=== PATIENT | male | born 1955 | race Caucasian/White ===

== ENCOUNTER → 2020-12-08 | Outpatient (CLI) | payer OTHER ==
[2016-02-18 08:49] VITALS: BP 112/78
[~2020-12-08] MED LIST: HYDR12.575 PO; LEXAPRO20 MG PO; METO50TA6 PO; SIMV40TA18 PO
--- NOTE | 2020-12-08 14:05 | KCIC ---
MR LUMBAR SPINE WO -[id number] History: Reason: DEGENERATIVE DISC DISEASE/LOW BACK PAIN / Spl. Instructions: / History: Chronic LBP , worsening right thigh pain. No surgical hx. Technique: Multiplanar, multi sequential MR imaging was performed of the lumbar spine. Comparison: None Findings: Grade 1 anterolisthesis L4 on L5. Normal vertebral body height. No fracture. Conus terminates at the normal location. No evidence of nerve root clumping. L1-L2: Small disc bulge. Mild facet arthropathy. No canal or neuroforaminal narrowing. L2-L3: Small disc bulge. Mild facet arthropathy. No canal or neuroforaminal narrowing. L3-L4: Broad-based disc bulge with annular fissure. Moderate facet arthropathy. Minimal canal narrow ing. Subarticular recess narrowing. Mild to moderate right and mild left neuroforaminal narrowing. L4-L5: Disc bulge. Advanced facet arthropathy. Mild canal narrowing. Some reticular recess narrowing . Abutment of descending L5 nerve roots, right greater than left. Mild to moderate bilateral neurofor aminal narrowing. L5-S1: Disc bulge. Advanced facet arthropathy. No canal narrowing.. Mild neuroforaminal narrowing. Impression: 1. Multilevel lumbar spondylosis most prominent L4-5. 2. Grade 1 anterolisthesis L4 on L5 due to advanced facet arthropathy. 3. Neuroforaminal narrowing most prominent L3-L4 and L4-L5. Electronically signed by: Gonzalo Moreland DO (12/08/2020 2:02 PM) [id number]
== END ==
LOC: KCIC MRI 10:03
PROVIDERS: ATTEND Physician Assistant
DX: M47.817 Spondylosis without myelopathy or radiculopathy, lumbosacral region (principal); M48.061 Spinal stenosis, lumbar region without neurogenic claudication; M43.16 Spondylolisthesis, lumbar region; M51.36 Other intervertebral disc degeneration, lumbar region
CPT/HCPCS: 72148

== ENCOUNTER → 2021-01-05 | Outpatient (CLI) | payer OTHER ==
[2016-02-18 08:49] VITALS: BP 112/78
[~2021-01-05] MED LIST changes: +ALLO300T PO; +BUSP30TA PO; +CELE200C PO; +FENO145T3 PO; +INDO75CA3 PO; +NAPR-514 PO; +PANT40TA77 PO; +TAMS0.4C97 PO; +ZOLP5TAB5 PO
--- NOTE | 2021-01-05 15:42 | PDOC1 ---
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 Patient reports now it is traveling in the right lower extremity and across the low back worse on the right side right at the posterior gluteus lateral thigh anterior thigh medial thigh posterior thigh into the anterior medial lower leg as well as both of the feet patient reports some pain in the mid back as well describes the pain as sharp and shooting intermittent intensity worse with activity standing walking changing positions better with sitting or laying down but does awaken him sleep at least twice a night patient reports is not effective bowel bladder control does affect his ability to walk he feels he is off balance and the right leg fatigues much more easily than the left. Patient describes pain as tingling and radiating aching and burning in the back with numbness and radiating in the leg on the right side patient rates his disability rating 0-10 10 being worst is an 8 with family home responsibilities recreation and social activity 7 with occupation 6 with sexual behavior and self-care 5 with life support activities. Patient did have an MRI scan lumbar spine dated December 08, 2020 showing broad-based disc bulge at L3-4 as well as L4-5 with moderate facet arthropathy at both levels minimal canal narrowing mild to moderate right and mild left neuroforaminal narrowing L3-4 and mild to moderate bilateral neuroforaminal narrowing at L4-5 with abutment of the descending L5 nerve roots and right greater than left. Patient reports has had chiropractic treatment also doing stretching strength exercises on his own which were helpful temporarily but the pain returned after about 4 to 5 days following treatment. Patient is taking naproxen also ibuprofen also Celebrex all of which have helped but only temporarily as well. PAST MEDICAL HISTORY: PMH: Arthritis, hypertension, non-Hodgkin's lymphoma 2008 status post surgery and chemotherapy, hearing loss PREVIOUS SURGERIES: Past Surgical Hx: Right knee surgery, abdominal tumor excision, left knee surgery, tonsillectomy, right foot surgery, umbilical hernia, ventral hernia, vasectomy, wisdom teeth extraction CURRENT MEDICATIONS: Current Meds: Active Scripts Medications Dose Route/Sig Max Daily Dose Days Date Category Allopurinol 300 Mg Tablet 1 Tab PO DAILY 01/05/21 Reported Celebrex (Celecoxib) 200 Mg Capsule 1 Cap PO DAILY 01/05/21 Reported Indomethacin 75 Mg Capsule.er 1 Cap PO DAILY 01/05/21 Reported Fenofibrate (Fenofibrate Nanocrystallized) 145 Mg Tablet 1 Tab PO DAILY 01/05/21 Reported Zolpidem Tartrate 5 Mg Tablet 5 Mg PO PRN QHS PRN 01/05/21 Reported Flomax (Tamsulosin Hcl) 0.4 Mg Cap.er.24h 1 Cap PO DAILY 01/05/21 Reported Pantoprazole Sodium (Pantoprazole Sodium) 40 Mg Tablet.dr 40 Mg PO DAILYAC 01/05/21 Reported Buspirone Hcl 30 Mg Tablet 1 Tab PO BID 01/05/21 Reported Naproxen 500 Mg Tablet 1 Tab PO BID 30 01/05/21 Reported Lexapro (Escitalopram Oxalate) 20 Mg Tablet 20 Mg PO DAILY 02/18/16 Reported Metoprolol Tartrate 50 Mg Tablet 50 Mg PO BID 02/18/16 Reported ALLERGIES; Allergies: Coded Allergies: latex (Verified Allergy, Intermediate, RASH, NOSE ITCHES, 02/18/16) FAMILY HISTORY: Family Hx: Cancers, also skin cancer SOCIAL HISTORY: Social Hx: Patient drinks about 3-5 beers a week does not smoke does not use any illegal illicit or recreational drugs is lives with his spouse lives locally in [facility] and is recently retired from duty. REVIEW OF SYSTEMS: ROS: Positive for those items mentioned in history of present illness, all systems are reviewed, otherwise negative ,and are complete full and well-documented on patient's chart. PHYSICAL EXAM: VS: Blood pressure is 134/75 pulse 69 respirations 18 temperature 98.7 F height is 6 foot weight 256 pounds PE: PHYSICAL EXAMINATION: GENERAL: The patient is awake, alert, oriented, appropriate, very pleasant in demeanor HEENT: Shows normocephalic, atraumatic. Extraocular movements are intact and symmetrical. Oral cavity: Mucous membranes moist and pink. Dentition is intact. NECK: Shows anterior throat supple without palpable lymphadenopathy noted. Swallow reflex symmetrical. CHEST: Shows normal on inspection. Breath sounds are clear bilaterally, no rales rhonchi or wheezes auscultated. HEART: Shows S1, S2 clear. No murmurs auscultated. ABDOMEN: Soft, nontender, nondistended, obese. No palpable organomegaly is noted. No rebound or guarding demonstrated. BACK: Shows spine grossly in the midline. Normal-appearing cervical lordotic curvature. There is slightly increased thoracic kyphosis, some minor flattening of the lumbar lordotic curvature. Lumbar paraspinous muscles show symmetrical o n inspection, on palpation shows some moderate tenderness diffusely throughout the upper, middle and lower distribution of the paraspinous muscles bilaterally and also into the lower thoracic paraspinous musculature, firm and tender, but without specific trigger points, without radiation of pain. The patient has good rotational motion of the lumbar spine, both laterally as well as extension and flexion without significant difficulty. No tenderness over the spinous processes, sacrum or sacroiliac regions. EXTREMITIES: Lower extremities show deep tendon reflexes 2+ in the patellar and tendo calcaneus tendons. Motor exam is 4 on a scale of 5 with right dorsiflexion, extension, quadriceps and hamstring flexion and 5/5 on the left. Peripheral pulses are 1+ posterior tibial. 1-2+ peripheral edema is noted in the lower extremities from the ankle to two thirds the distance to the knee on the anterior tibia, bilaterally. Lower extremities are warm and dry to touch, equal in color and appearance. Straight leg raise noted to be positive on the right about 40 degrees, left side is neck. Gaenslen's and Abel's maneuvers are negative bilaterally as well. The patient is able to stand, stand on his toes that significant difficulty loss of balance walks with a slight favoring gait appears to favor the right lower extremity mildly but no assistive devices used to ambulate. SKIN: Shows warm and dry, good turgor. No edema. No sores, rashes or bruising throughout. IMPRESSION: Impression: 65-year-old male with 3-year history increasing pain low back right lower extremity radicular fashion following L3-4 L4-5 dermatomal distribution MRI scan lumbar spine as noted Arthritis Hypertension History of non-Hodgkin's lymphoma Plan: Options were discussed with patient including conservative management physical therapies interventional techniques. Patient would like to pursue interventional techniques. We discussed a lumbar epidural steroid injection using description as well as anatomical model to describe the procedure. Patient will wait for preauthorization with his insurance provider once is obtained to have him return for translaminar approach L4-5 lumbar epidural steroid injection with fluoroscopic guidance at that time. In the meantime, p efren will continue with stretching strength exercises and oral analgesics as currently. NAHED LAWRENCE MD Jan 05, 2021 15:42
== END | disposition home or self-care (01) ==
LOC: PNCL 09:00
PROVIDERS: ATTEND Anesthesiology
DX: M54.5 Low back pain (principal); M79.604 Pain in right leg; M19.90 Unspecified osteoarthritis, unspecified site; I10 Essential (primary) hypertension; E78.00 Pure hypercholesterolemia, unspecified; G47.30 Sleep apnea, unspecified; F32.9 Major depressive disorder, single episode, unspecified; Z79.899 Other long term (current) drug therapy; Z98.890 Other specified postprocedural states; Z91.040 Latex allergy status; Z88.8 Allergy status to other drugs, medicaments and biological substances; Z85.72 Personal history of non-Hodgkin lymphomas
CPT/HCPCS: G0463

== ENCOUNTER → 2021-01-28 | Outpatient (CLI) | payer OTHER ==
[2016-02-18 08:49] VITALS: BP 112/78
[~2021-01-28] MED LIST changes: +IOHEXOL 180 MG/ML 10 ML VIAL. ONE; +methylPREDNISolone ACETATE 80 MG/ML VIAL. ONE
--- NOTE | 2021-01-28 10:44 | PDOC ---
Progress Note - Pain Clinic Date of Service: DOS: DATE: 01/28/21 TIME: 10:42 Diagnosis: Dx: Lumbar radiculopathy with lumbar degenerative disease and lumbar spondylosis History or Present Illness: HPI: 65-year-old male returns for follow-up status post initial evaluation patient returns with pain in the low back and radiating into the right lower extremity low back right leg posterior gluteus posterior lateral thigh lateral anterior thigh anteromedial thigh medial lower leg described as aching and sharp burning on and off in intensity worse with walking and standing is been waking her from sleep least once or twice a night patient reports the pain is an 8 on scale 10 is worse over the past week 5 on average to its least and is a 2 today. Patient reports better with sitting or laying down but he has been waking up from sleep patient reports no bowel or bladder incontinence or motor deficits with sig nificant debility extremity. Physical Exam: VS: Blood pressure is 111/71 pulse 87 respirations 18 temperature 99.6 F weight is 252 pounds PE: PHYSICAL EXAMINATION: GENERAL: The patient is awake, alert, oriented, appropriate, very pleasant in demeanor HEENT: Shows normocephalic, atraumatic. Extraocular movements are intact and symmetrical. Oral cavity: Mucous membranes moist and pink. Dentition is intact. NECK: Shows anterior throat supple without palpable lymphadenopathy noted. Swallow reflex symmetrical. CHEST: Shows normal on inspection. Breath sounds are clear bilaterally, no rales or rhonchi. HEART: Shows S1, S2 clear. No murmurs auscultated. ABDOMEN: Soft, nontender, nondistended, obese. No palpable organomegaly is noted. BACK: Shows spine grossly in the midline. Normal-appearing cervical lordotic curvature. There is slightly increased thoracic kyphosis, some minor flattening of the lumbar lordotic curvature. Lumbar paraspinous muscles show symmetrical on inspection, on palpation shows some moderate tenderness diffusely throughout the upper, middle and lower distribution of the paraspinous muscles without specific trigger points, without radiation of pain. The patient has good rotational motion of the lumbar spine, both laterally as well as extension and flexion without significant difficulty. EXTREMITIES: Lower extremities show deep tendon reflexes 2+ in the patellar and tendo calcaneus tendons. Motor exam is 4 on a scale of 5 with right dorsiflexion, extension, quadriceps and hamstring flexion and []/5 on the left. Peripheral pulses are 1+ posterior tibial. No peripheral edema is noted bilaterally. Lower extremities are warm and dry to touch, equal in color and appearance. SKIN: Shows warm and dry, good turgor. No edema. No sores, rashes or bruising throughout. Procedure: Procedure: Options were discussed with the patient. Patient's old chart was reviewed his current medication regimen updated current review of systems updated today as well. We will proceed with a lumbar epidural steroid injection today with fluoroscopic guidance. Risks were discussed including but not limited to: Bleeding, infection, possibility of epidural hematoma and subsequent neurological compromise, dural puncture, headaches, spinal cord and/or nerve damage, side effects of steroid medication, and poor results regarding pain control. Patient understands and wished to proceed. Patient return to clinic in approximate 2 weeks for follow-up, was counseled as to return appointment, activity level, and side effects to be aware of. Medication Injected: Med Injected: Procedure is lumbar epidural steroid injection under local anesthetic using neena rile prep and drape at the L4-5 level using C-arm fluoroscopic guidance in both AP and lateral views medications injected is 120 mg Depo-Medrol +10mL preservative-free normal saline and 2 mL contrast- condition at discharge is stable patient tolerated procedure well had no complications. Condition at Discharge: Condition at Discharge: Condition at discharge is stable, patient tolerated the procedure well and had no complications. NAHED LAWRENCE MD Jan 28, 2021 10:44
--- NOTE | 2021-01-28 10:45 | PDOC4 ---
Procedure Note: ICD 10 Code: ICD 10 Code: M54.16 M54.36 M 47.816 Procedure Note: Patient was consented for lumbar epidural steroid injection with fluoroscopic guidance. Risks were discussed including but not limited to: Bleeding, infection, possibility of epidural hematoma and subsequent neurological compromise, dural puncture, headaches, spinal cord and/or nerve damage, side effects of steroid medication, and poor results regarding pain control. Patient understands and wished to proceed. Procedure is lumbar epidural steroid injection under local anesthetic using st erile prep and drape at the L4-5 level using C-arm fluoroscopic guidance in both AP and lateral views medications injected is 120 mg Depo-Medrol +10mL preservative-free normal saline and 2 mL contrast- condition at discharge is stable patient tolerated procedure well had no complications. NAHED LAWRENCE MD Jan 28, 2021 10:45
== END | disposition home or self-care (01) ==
LOC: PNCL 09:20
PROVIDERS: ATTEND Anesthesiology
DX: M51.16 Intervertebral disc disorders with radiculopathy, lumbar region (principal); M47.26 Other spondylosis with radiculopathy, lumbar region; I10 Essential (primary) hypertension; E78.00 Pure hypercholesterolemia, unspecified; G47.30 Sleep apnea, unspecified; M19.90 Unspecified osteoarthritis, unspecified site; F32.9 Major depressive disorder, single episode, unspecified; Z79.899 Other long term (current) drug therapy; Z98.890 Other specified postprocedural states; Z91.040 Latex allergy status
CPT/HCPCS: 62323; J1040; Q9965

== ENCOUNTER → 2021-02-11 | Outpatient (CLI) | payer OTHER ==
[2016-02-18 08:49] VITALS: BP 112/78
--- NOTE | 2021-02-11 12:16 | PDOC ---
Progress Note - Pain Clinic Date of Service: DOS: DATE: 02/11/21 TIME: 12:13 Diagnosis: Dx: Lumbar radiculopathy with lumbar degenerative disease and lumbar spondylosis History or Present Illness: HPI: 65-year-old male returns for follow-up status post lumbar epidural steroid injection x1. Patient reports about 50% improvement after the first injection with pain still in the low back and into the right lower extremity posterior gluteus posterior lateral thigh lateral anterior thigh anteromedial thigh medial lower leg worse with walking and standing patient reports is better with sitting or laying down initially was doing much better with walking doing household activities work activity standing for greater time periods and bending over flexing standing with much greater ease and comfort with the low back patient reports still better with sitting or laying down does not awaken him from sleep at night. Patient rates his pain a 9 on scale 10 is worse over the past week 5 on average to its least is a 5 today patient reports that sharp and aching shooting sometimes dull can be constant or severe with extended standing. Patient reports no bowel or bladder incontinence. Physical Exam: VS: Blood pressure is 120/79 pulse 67 respirations 18 temperature 98.5 F weight is 215 pounds PE: PHYSICAL EXAMINATION: GENERAL: The patient is awake, alert, oriented, appropriate, very pleasant in demeanor HEENT: Shows normocephalic, atraumatic. Extraocular movements are intact and symmetrical. Oral cavity: Mucous membranes moist and pink. Dentition is intact. NECK: Shows anterior throat supple without palpable lymphadenopathy noted. Swallow reflex symmetrical. CHEST: Shows normal on inspection. Breath sounds are clear bilaterally, no ral es rhonchi wheezes. HEART: Shows S1, S2 clear. No murmurs auscultated. ABDOMEN: Soft, nontender, nondistended, obese. No palpable organomegaly is noted. BACK: Shows spine grossly in the midline. Normal-appearing cervical lordotic curvature. There is slightly increased thoracic kyphosis, some minor flattening of the lumbar lordotic curvature. Lumbar paraspinous muscles show symmetrical on inspection, on palpation shows some moderate tenderness diffusely throughout the upper, middle and lower distribution of the paraspinous muscles without specific trigger points, without radiation of pain. The patient has good rotational motion of the lumbar spine, both laterally as well as extension and flexion without significant difficulty. EXTREMITIES: Lower extremities show deep tendon reflexes 2+ in the patellar and tendo calcaneus tendons. Motor exam is 4 on a scale of 5 with right dorsi flexion, extension, quadriceps and hamstring flexion and 5/5 on the left. Peripheral pulses are 1+ posterior tibial. No peripheral edema is noted bilaterally. Lower extremities are warm and dry to touch, equal in color and appearance. SKIN: Shows warm and dry, good turgor. No edema. No sores, rashes or bruising throughout. Procedure: Procedure: Options were discussed with patient. Patient's old chart was reviewed his current medication regimen updated current review of systems updated today as well. We will proceed with a lumbar epidural steroid injection today with fluoroscopic guidance. Risks were discussed including but not limited to: Bleeding, infection, possibility of epidural hematoma and subsequent neurologi nadege compromise, dural puncture, headaches, spinal cord and/or nerve damage, side effects of steroid medication, and poor results regarding pain control. Patient understands and wished to proceed. Patient will return to the clinic in approximate 2 weeks for follow-up, was counseled as return appointment activity level and side effects to be aware of. Medication Injected: Med Injected: Procedure is lumbar epidural steroid injection under local anesthetic using sterile prep and drape at the L4-5 level using C-arm fluoroscopic guidance in both AP and lateral views medications injected is 120 mg Depo-Medrol +10mL preservative-free normal saline and 2 mL contrast- condition at discharge is stable patient tolerated procedure well had no complications. Condition at Discharge: Condition at Discharge: Condition at discharge stable, patient already the procedure well and had no complications. NAHED LAWRENCE MD Feb 11, 2021 12:16
--- NOTE | 2021-02-11 12:16 | PDOC4 ---
Procedure Note: ICD 10 Code: ICD 10 Code: M54.16 M51.36 7.816 Procedure Note: Patient was consented for lumbar epidural steroid injection with fluoroscopic guidance. Risks were discussed including but not limited to: Bleeding, infection, possibility of epidural hematoma and subsequent neurological compromise, dural puncture, headaches, spinal cord and/or nerve damage, side effects of steroid medication, and poor results regarding pain control. Patient understands and wished to proceed. Procedure is lumbar epidural steroid injection under local anesthetic using st erile prep and drape at the L4-5 level using C-arm fluoroscopic guidance in both AP and lateral views medications injected is 120 mg Depo-Medrol +10mL preservative-free normal saline and 2 mL contrast- condition at discharge is stable patient tolerated procedure well had no complications. NAHED LAWRENCE MD Feb 11, 2021 12:16
== END | disposition home or self-care (01) ==
LOC: PNCL 10:54
PROVIDERS: ATTEND Anesthesiology
DX: M51.16 Intervertebral disc disorders with radiculopathy, lumbar region (principal); M47.26 Other spondylosis with radiculopathy, lumbar region; I10 Essential (primary) hypertension; E78.00 Pure hypercholesterolemia, unspecified; G47.30 Sleep apnea, unspecified; M19.90 Unspecified osteoarthritis, unspecified site; Z79.899 Other long term (current) drug therapy; Z98.890 Other specified postprocedural states; Z91.040 Latex allergy status
CPT/HCPCS: 62323; J1040; Q9965; 62322

== ENCOUNTER → 2021-02-25 | Outpatient (CLI) | payer OTHER ==
[2016-02-18 08:49] VITALS: BP 112/78
[~2021-02-25] MED LIST changes: -IOHEXOL 180 MG/ML 10 ML VIAL. ONE; -methylPREDNISolone ACETATE 80 MG/ML VIAL. ONE
--- NOTE | 2021-02-25 12:55 | PDOC ---
Progress Note - Pain Clinic Date of Service: DOS: DATE: 02/25/21 TIME: 12:52 Diagnosis: Dx: Lumbar radiculopathy with lumbar degenerative disease and lumbar spondylosis History or Present Illness: HPI: 65-year-old male returns for follow-up status post lumbar epidural steroid injection x2. Patient reports about 80% improvement after the last injection for about 10 days following the injection patient reports the pain is still improved but not quite to the level it was the first 10 days or so patient reports still pain low back and into the right lower extremity as it was previously posterior gluteus posterior lateral thigh lateral anterior thigh a nteromedial thigh medial lower leg but again much improved patient reports of increased distance walking doing household activities work activities bending sitting for longer periods walking and sleeping better at night patient reports does not awaken her from sleep patient reports is currently an aching pain in the low back shooting in the right leg that can be dull and sharp alternating rate is a 6 on scale 10 is worst 3 on average 3 its least is a 3 today. Patient reports no new motor or sensory deficits no new bowel or bladder incontinence. Physical Exam: VS: Blood pressure is 134/78 pulse 69 respiration 16 temperature 99.1 F weight is 249 pounds PE: PHYSICAL EXAMINATION: GENERAL: The patient is awake, alert, oriented, appropriate, very pleasant in demeanor HEENT: Shows normocephalic, atraumatic. Extraocular movements are intact and symmetrical. Oral cavity: Mucous membranes moist and pink. Dentition is intact. NECK: Shows anterior throat supple without palpable lymphadenopathy noted. Swallow reflex symmetrical. CHEST: Shows normal on inspection. Breath sounds are clear bilaterally, no rales rhonchi or wheeze. HEART: Shows S1, S2 clear. No murmurs auscultated. ABDOMEN: Soft, nontender, nondistended, obese. No palpable organomegaly is noted. BACK: Shows spine grossly in the midline. Normal-appearing cervical lordotic curvature. There is slightly increased thoracic kyphosis, some minor flattening of the lumbar lordotic curvature. Lumbar paraspinous muscles show symmetrical on inspection, on palpation shows some moderate tenderness diffusely throughout the upper, middle and lower distribution of the paraspinous muscles without specific trigger points, without radiation of pain. The patient has good rotational motion of the lumbar spine, both laterally as well as extension and flexion without significant difficulty. EXTREMITIES: Lower extremities show deep tendon reflexes 2+ in the patellar and tendo calcaneus tendons. Motor exam is 4 on a scale of 5 with right dorsiflexion, extension, quadriceps and hamstring flexion and 5/5 on the left. Peripheral pulses are 1+ posterior tibial. No peripheral edema is noted bilaterally. Lower extremities are warm and dry to touch, equal in color and appearance. SKIN: Shows warm and dry, good turgor. No edema. No sores, rashes or bruising throughout. Procedure: Procedure: Options discussed with patient. Patient chart was reviewed as his current medication regimen updated current review of systems updated today as well. We will preauthorize patient for a third lumbar epidural steroid injections and very well after the second injection with pain returning in the low back with a right L4-5 dermatomal distribution. In the meantime patient will continue with stretching strength exercises as well as oral analgesics as currently. Medication Injected: Med Injected: None Condition at Discharge: Condition at Discharge: Condition at discharge is stable. NAHED LAWRENCE MD Feb 25, 2021 12:55
== END | disposition home or self-care (01) ==
LOC: PNCL 11:30
PROVIDERS: ATTEND Anesthesiology
DX: M51.16 Intervertebral disc disorders with radiculopathy, lumbar region (principal); M47.26 Other spondylosis with radiculopathy, lumbar region
CPT/HCPCS: 99212; G0463

== ENCOUNTER → 2021-03-08 | Outpatient (CLI) | payer MEDICARE, OTHER ==
[2016-02-18 08:49] VITALS: BP 112/78
[~2021-03-08] MED LIST changes: +IOHEXOL 180 MG/ML 10 ML VIAL. ONE; +methylPREDNISolone ACETATE 40 MG/ML VIAL. ONE; +methylPREDNISolone ACETATE 80 MG/ML VIAL. ONE
--- NOTE | 2021-03-08 09:01 | PDOC4 ---
Procedure Note: ICD 10 Code: ICD 10 Code: M54.16 M51.36 7.816 Procedure Note: Patient was consented for lumbar epidural steroid injection fluoroscopic guidance. Risks were discussed including but not limited to: Bleeding, infection, possibility of epidural hematoma and subsequent neurological compromise, dural puncture, headaches, spinal cord and/or nerve damage, side effects of steroid medication, and poor results regarding pain control. Patient understands and wished to proceed. Procedure is lumbar epidural steroid injection under local anesthetic using sterile prep and drape at the L4-5 level using C-arm fluoroscopic guidance in both AP and lateral views medications injected is 120 mg Depo-Medrol +10mL preservative-free normal saline and 2 mL contrast- condition at discharge is stable patient tolerated procedure well had no complications. NAHED LAWRENCE MD Mar 08, 2021 09:01
--- NOTE | 2021-03-08 09:01 | PDOC ---
Progress Note - Pain Clinic Date of Service: DOS: DATE: 03/08/21 TIME: 08:55 Diagnosis: Dx: Lumbar radiculopathy with lumbar degenerative disease and lumbar spondylosis History or Present Illness: HPI: 65-year-old male returns for follow-up status post lumbar epidural steroid injection x2 with 80% improvement for the first month after his last injection patient reports doing much better with the pain in the low back returning however with the right leg doing much better the radiculopathy is much improved it is still present but much improved in the right leg still with some radiation right posterior gluteus lateral thigh anterior thigh medial thigh much better patient reports increase his activity with greater ease and comfort walking greater distances doing household activities work activities travel with greater ease and comfort and sleeping better at night patient reports generally does not awaken from sleep currently. Patient rates pain as a 6 on scale 10 is worse over the past week for an average 1 its least is a 4 today describes aching and tight on and off in intensity patient reports no bowel or bladder incontinence. Physical Exam: VS: Blood pressure is 142/78 pulse 69 respirations 18 temperature 98.3 F weight is 252 pounds PE: PHYSICAL EXAMINATION: GENERAL: The patient is awake, alert, oriented, appropriate, very pleasant in demeanor HEENT: Shows normocephalic, atraumatic. Extraocular movements are intact and symmetrical. Oral cavity: Mucous membranes moist and pink. Dentition is intact. NECK: Shows anterior throat supple without palpable lymphadenopathy noted. Swallow reflex symmetrical. CHEST: Shows normal on inspection. Breath sounds are clear bilaterally, no rales or. HEART: Shows S1, S2 clear. No murmurs auscultated. ABDOMEN: Soft, nontender, nondistended, obese. No palpable organomegaly is noted. BACK: Shows spine grossly in the midline. Normal-appearing cervical lordotic curvature. There is slightly increased thoracic kyphosis, some minor flattening of the lumbar lordotic curvature. Lumbar paraspinous muscles show symmetrical on inspection, on palpation shows some moderate tenderness diffusely throughout the upper, middle and lower distribution of the paraspinous muscles without specific trigger points, without radiation of pain. The patient has good rotational motion of the lumbar spine, both laterally as well as extension and flexion without significant difficulty. EXTREMITIES: Lower extremities show deep tendon reflexes 2+ in the patellar and tendo calcaneus tendons. Motor exam is 4 on a scale of 5 with right dorsiflexion, extension, quadriceps and hamstring flexion and 5/5 on the left. Peripheral pulses are 1+ posterior tibial. No peripheral edema is noted bilaterally. Lower extremities are warm and dry. SKIN: Shows warm and dry, good turgor. No edema. No sores, rashes or bruising throughout. Procedure: Procedure: Options discussed with patient. Patient chart was reviewed his current medication regimen updated current review of systems updated today as well. We will proceed with a lumbar epidural steroid injection today with fluoroscopic guidance. Risks were discussed including but not limited to: Bleeding, infection, possibility of epidural hematoma and subsequent neurological compromise, dural puncture, headaches, spinal cord and/or nerve damage, side effects of steroid medication, and poor results regarding pain control. Patient understands and wished to proceed. Patient return to clinic in approximate 2 weeks for follow-up, was counseled return appointment to level and side effects to be aware of. Medication Injected: Med Injected: Procedure is lumbar epidural steroid injection under local anesthetic using sterile prep and drape at the L4-5 level using C-arm fluoroscopic guidance in both AP and lateral views medications injected is 120 mg Depo-Medrol +10mL preservative-free normal saline and 2 mL contrast- condition at discharge is stable patient tolerated procedure well had no complications. Condition at Discharge: Condition at Discharge: Condition at discharge stable, pain tolerated seizure well and had no complications. NAHED LAWRENCE MD Mar 08, 2021 09:01
== END | disposition home or self-care (01) ==
LOC: PNCL 07:51
PROVIDERS: ATTEND Anesthesiology
DX: M51.16 Intervertebral disc disorders with radiculopathy, lumbar region (principal); M47.26 Other spondylosis with radiculopathy, lumbar region; I10 Essential (primary) hypertension; E78.00 Pure hypercholesterolemia, unspecified; M19.90 Unspecified osteoarthritis, unspecified site; F32.9 Major depressive disorder, single episode, unspecified; Z79.899 Other long term (current) drug therapy; Z98.890 Other specified postprocedural states; Z91.040 Latex allergy status; Z88.8 Allergy status to other drugs, medicaments and biological substances
CPT/HCPCS: 62323; J1030; J1040; Q9965

== ENCOUNTER → 2021-08-02 | Outpatient (CLI) | payer MEDICARE, OTHER ==
[2016-02-18 08:49] VITALS: BP 112/78
[~2021-08-02] MED LIST changes: +DEXAMETHASONE PRES.FREE 10 MG/ML VIAL. ONE; +INDO75CA10 PO; -INDO75CA3 PO; -methylPREDNISolone ACETATE 40 MG/ML VIAL. ONE; -methylPREDNISolone ACETATE 80 MG/ML VIAL. ONE
--- NOTE | 2021-08-02 11:15 | PDOC ---
Progress Note - Pain Clinic Date of Service: DOS: DATE: 08/02/21 TIME: 11:11 Diagnosis: Dx: Lumbar radiculopathy with lumbar degenerative disease and lumbar spondylosis History or Present Illness: HPI: 66-year-old male returns for follow-up last seen March 2021 patient did very well after lumbar epidural steroid injection by 90% improvement for about 2 months patient reports the low back and right lower extremity doing much better increase activity with distance walking doing household activities work activities try with greater ease and comfort sleeping better at night patient reports still sleeping well but his pain now is changed he has pain in the left lower extremity as well as the right into the posterior gluteus lateral thigh anterior thigh medial thigh again worse on the right but present bilaterally patient reports generally is on the right side that is hurting of the left side now also painful in the similar distribution patient reports has not had any recent injuries or accidents the pain just became more noticeable over the past month or so. Patient reports is 8 on scale 10 is worst over the past week 5 on average to its least is a 5 today patient reports aching sharp radiating shooting can be cramping and stabbing in the back patient still taking Aleve has been using it more often over the last few weeks as well which does decrease the pain by about 30 to 40%. Patient reports no bowel or bladder incontinence. Physical Exam: VS: Blood pressure is 135/79 pulse 63 respirations 18 temperature 98.5 F weight is 270 pounds. PE: PHYSICAL EXAMINATION: GENERAL: The patient is awake, alert, oriented, appropriate, very pleasant in demeanor HEENT: Shows normocephalic, atraumatic. Extraocular movements are intact and symmetrical. Oral cavity: Mucous membranes moist and pink. Dentition is intact. NECK: Shows anterior throat supple without palpable lymphadenopathy noted. Swallow reflex symmetrical. CHEST: Shows normal on inspection. Breath sounds are clear bilaterally, distant but no rales rhonchi wheezes auscultated. HEART: Shows S1, S2 clear. No murmurs auscultated. ABDOMEN: Soft, nontender, nondistended. No palpable organomegaly is noted. BACK: Shows spine grossly in the midline. Normal-appearing cervical lordotic curvature. There is moderately increased thoracic kyphosis, some mild flattening of the lumbar lordotic curvature. Lumbar paraspinous muscles show symmetrical on inspection, on palpation shows some moderate tenderness diffusely throughout the upper, middle and lower distribution of the paraspinous muscles, but without specific trigger points, without radiation of pain. The patient has good rotational motion of the lumbar spine, both laterally as well as extension and flexion without significant difficulty. No tenderness over the spinous processes, sacrum or sacroiliac regions. EXTREMITIES: Lower extremities show deep tendon reflexes 2+ in the patellar and tendo calcaneus tendons. Motor exam is 4 on a scale of 5 with right dorsiflexion, extension, quadriceps and hamstring flexion and 5/5 on the left. Peripheral pulses are 1+ posterior tibial. No peripheral edema is noted cisco aterally. Lower extremities are warm and dry. SKIN: Shows warm and dry, good turgor. No edema. No sores, rashes or bruising throughout. Procedure: Procedure: Options discussed with the patient. Patient's old chart was reviewed his current medication regimen updated current review of systems updated today as well. We will proceed with a lumbar epidural steroid injections today with fluoroscopic guidance. Risks were discussed including but not limited to: Bleeding, infection, possibility of epidural hematoma and subsequent neurological compromise, dural puncture, headaches, spinal cord and/or nerve damage, side effects of steroid medication, and poor results regarding pain control. Patient understands and wished to proceed. Patient return to the clinic in approximately 2 weeks for follow-up, was counseled as to return appointment, activity level, and side effect to be aware of. Medication Injected: Med Injected: Procedure is lumbar epidural steroid injection under local anesthetic using sterile prep and drape at the L4-5 level using C-arm fluoroscopic guidance in both AP and lateral views medications injected is 20 mg dexamethasone +10mL preservative-free normal saline and 2 mL contrast- condition at discharge is stable patient tolerated procedure well had no complications. Condition at Discharge: Condition at Discharge: Condition at discharge is stable, patient tolerated the procedure well and had no complications. NAHED LAWRENCE MD Aug 02, 2021 11:15
--- NOTE | 2021-08-02 11:15 | PDOC4 ---
Procedure Note: ICD 10 Code: ICD 10 Code: M54.16 M51.36 7.816 Procedure Note: Patient was consented for lumbar epidural steroid injection with fluoroscopic guidance. Risks were discussed including but not limited to: Bleeding, infection, possibility of epidural hematoma and subsequent neurological compromise, dural puncture, headaches, spinal cord and/or nerve damage, side effects of steroid medication, and poor results regarding pain control. Patient understands and wished to proceed. Procedure is lumbar epidural steroid injection under local anesthetic using st erile prep and drape at the L4-5 level using C-arm fluoroscopic guidance in both AP and lateral views medications injected is 20 mg dexamethasone +10mL preservative-free normal saline and 2 mL contrast- condition at discharge is stable patient tolerated procedure well had no complications. NAHED LAWRENCE MD Aug 02, 2021 11:15
== END | disposition home or self-care (01) ==
LOC: PNCL 10:09
PROVIDERS: ATTEND Anesthesiology
DX: M51.16 Intervertebral disc disorders with radiculopathy, lumbar region (principal); M47.26 Other spondylosis with radiculopathy, lumbar region; I10 Essential (primary) hypertension; E78.00 Pure hypercholesterolemia, unspecified; G47.30 Sleep apnea, unspecified; M19.90 Unspecified osteoarthritis, unspecified site; F32.9 Major depressive disorder, single episode, unspecified; Z79.899 Other long term (current) drug therapy; Z98.890 Other specified postprocedural states; Z91.040 Latex allergy status
CPT/HCPCS: 62323; J1100; Q9965

== ENCOUNTER → 2021-09-28 | Outpatient (CLI) | payer MEDICARE, OTHER ==
[2016-02-18 08:49] VITALS: BP 112/78
--- NOTE | 2021-09-28 11:37 | PDOC ---
Progress Note - Pain Clinic Date of Service: DOS: DATE: 09/28/21 TIME: 11:34 Diagnosis: Dx: Lumbar radiculopathy with lumbar degenerative disease and lumbar spondylosis History or Present Illness: HPI: 66-year-old male returns for follow-up status post lumbar epidural steroid injection x1 was recently seen August 03, 2019 patient did very well with the procedure reports that the pain in his low back and right leg significantly improved by about 75% for several weeks following the injection patient reports pain is returning now but is now also on the left side which is new for him with pain rating the posterior gluteus lateral thigh anterior thigh medial thigh on the left as well as the right worse on the right still but present bilaterally now patient reports no recent injuries or accident patient reports his pain is aching and sharp in the back shooting in the legs radiating can be on and off in intensity is a 9 on scale 10 is worse over the past week 8 on average 3 at its least and is a 6 today. Patient reports no loss of motor function but significant fatigability of the lower extremities with walking and standing for more than about 15 minutes. Patient reports no bowel or bladder incontinence. Physical Exam: VS: Blood pressure is 116/68 pulse 67 respirations are 20 temperature is 98.3 F weight is 262 pounds. PE: PHYSICAL EXAMINATION: GENERAL: The patient is awake, alert, oriented, appropriate, very pleasant in demeanor HEENT: Shows normocephalic, atraumatic. Extraocular movements are intact and symmetrical. Oral cavity: Mucous membranes moist and pink. Dentition is intact. NECK: Shows anterior throat supple without palpable lymphadenopathy noted. Swallow reflex symmetrical. CHEST: Shows normal on inspection. Breath sounds are clear bilaterally, distant but no rales or rhonchi auscultated. HEART: Shows S1, S2 clear. No murmurs auscultated. ABDOMEN: Soft, nontender, nondistended. No palpable organomegaly is noted. BACK: Shows spine grossly in the midline. Normal-appearing cervical lordotic curvature. There is slightly increased thoracic kyphosis, some minor flattening of the lumbar lordotic curvature. Lumbar paraspinous muscles show symmetrical on inspection, on palpation shows some moderate tenderness diffusely throughout the upper, middle and lower distribution of the paraspinous muscles, but without specific trigger points, without radiation of pain. The patient has good rotational motion of the lumbar spine, both laterally as well as extension and flexion without significant difficulty. EXTREMITIES: Lower extremities show deep tendon reflexes 2+ in the patellar and tendo calcaneus tendons. Motor exam is 4 on a scale of 5 with right dorsiflexion, extension, quadriceps and hamstring flexion and 5/5 on the left. Peripheral pulses are 1+ posterior tibial. No peripheral edema is noted bilaterally. Lower extremities are warm and dry to touch, equal in color and appearance. SKIN: Shows warm and dry, good turgor. No edema. No sores, rashes or bruising throughout. Procedure: Procedure: Options were discussed with the patient. Patient's old chart was viewed as his current medication regimen updated current review of systems updated today as well. We will proceed with a lumbar epidural steroid injection today with fluoroscopic guidance. Risks were discussed including but not limited to: Bleeding, infection, possibility of epidural hematoma and subsequent neurological compromise, dural puncture, headaches, spinal cord and/or nerve damage, side effects of steroid medication, and poor results regarding pain control. Patient understands and wished to proceed. Patient will return to the clinic in approximate 2 weeks for follow-up, was counseled as to return appointment, activity level, and side effect to be aware of. Medication Injected: Med Injected: Procedure is lumbar epidural steroid injection under local anesthetic using sterile prep and drape at the L4-5 level using C-arm fluoroscopic guidance in both AP and lateral views medications injected is 20 mg dexamethasone +10mL preservative-free normal saline and 2 mL contrast- condition at discharge is stable patient tolerated procedure well had no complications. Condition at Discharge: Condition at Discharge: Condition at discharge stable, patient tolerated the procedure well and had no complications. NAHED LAWRENCE MD Sep 28, 2021 11:37
--- NOTE | 2021-09-28 11:37 | PDOC4 ---
Procedure Note: ICD 10 Code: ICD 10 Code: M54.16 M51.36 7.816 Procedure Note: Patient was consented for lumbar epidural steroid injection with fluoroscopic guidance. Risks were discussed including but not limited to: Bleeding, infection, possibility of epidural hematoma and subsequent neurological compromise, dural puncture, headaches, spinal cord and/or nerve damage, side effects of steroid medication, and poor results regarding pain control. Patient understands and wished to proceed. Procedure is lumbar epidural steroid injection under local anesthetic using st erile prep and drape at the L4-5 level using C-arm fluoroscopic guidance in both AP and lateral views medications injected is 20 mg dexamethasone +10mL preservative-free normal saline and 2 mL contrast- condition at discharge is stable patient tolerated procedure well had no complications. NAHED LAWRENCE MD Sep 28, 2021 11:37
== END | disposition home or self-care (01) ==
LOC: PNCL 10:01
PROVIDERS: ATTEND Anesthesiology
DX: M51.16 Intervertebral disc disorders with radiculopathy, lumbar region (principal); M47.26 Other spondylosis with radiculopathy, lumbar region; I10 Essential (primary) hypertension; E78.00 Pure hypercholesterolemia, unspecified; M19.90 Unspecified osteoarthritis, unspecified site; F32.9 Major depressive disorder, single episode, unspecified; G47.30 Sleep apnea, unspecified; Z79.899 Other long term (current) drug therapy; Z98.890 Other specified postprocedural states; Z91.040 Latex allergy status
CPT/HCPCS: 62323; J1100; Q9965